=== PATIENT | male | born 1985 | race Caucasian/White ===

== ENCOUNTER 2016-07-21 21:26 | Emergency (ER) | payer MEDICAID ==
--- NOTE | 2016-07-21 22:01 | EDM.PDOC ---
ED HPI HEAD INJURY - General Stated Complaint: UNK Time Seen by Provider: 07/21/16 21:28 Source of Information: Reports: Patient History Limitations: Reports: No limitations - History of Present Illness INITIAL COMMENTS - FREE TEXT/NARRATIVE: Patient reports the following story. He states that he has a history of chronic right shoulder dislocations. In the last few years it has dislocated over 20 times. He usually gets it back into place by laying down and relaxing or getting someone to help him pull it back into place. He was changing his oil in the parking lot of an [employer] store and using a ranch with his right arm when his shoulder dislocated. He asked a passerby to help him pull his shoulder back into place. He asked the gentleman if he was a Jew and he said he was. He laid down on the ground and was telling the good Rastafari how to do it when, he states, everything "went white". When he awoke his shoulder was back in place and he did not have the usual decreased range of motion and tenderness that he has had on previous occasions. He states he believes that Cullen put his shoulder back into place to spare the stranger from having to do it. The stranger then completed the oil change for him. Now he'll he reports face pain and he has a laceration on his chin. He does not know where these injuries came from. Besides the chronic shoulder dislocations he reports no medical problems, he does not take any medications. He denies alcohol use but states that he does sometimes use medicinal cannabis for his shoulder dislocations. 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 He has since quit working for [employer] and is on a road trip to make his own films. - Related Data Allergies/ADRs: Allergies Allergy/AdvReac Type Severity Reaction Status Date / Time No Known Allergies Allergy Verified 07/21/16 22:04 Home Meds: Home Meds Zinc 50 mg PO DAILY 07/21/16 [History] ED ROS GENERAL - Review of Systems Review Of Systems: ROS reveals no pertinent complaints other than HPI. ED EXAM, HEAD INJURY - Physical Exam Exam: See Below Exam Limited By: Other (bizzare ideations) General Appearance: alert, no apparent distress Head: normocephalic, other (Abrasion under the left eye and on the right zygomatic process 2 cm full-thickness straight laceration to the chin) Ears: normal external exam Nose: normal inspection Throat/Mouth: Normal inspection Neck: non-tender Respiratory: no respiratory distress, lungs clear, normal breath sounds Cardiovascular: normal peripheral pulses, regular rate, rhythm GI/Abdominal Exam (Abbreviated): soft Back Exam: normal inspection Extremities: no evidence of injury Neurologic: no motor/sensory deficits, alert, normal mood/affect, oriented x 3 Skin: Normal color, Warm/dry ED LACERATION/WOUND & ROSARIO PROC - Laceration/Wound Repair Face Lac/wound length in cm: 2 Appearance: subcutaneous Local anesthesia - Lidocaine (Xylocaine): 1% plain Local anesthetic volume: 5cc Skin prep: chlorhexidine (hibiciens) Exploration/Debridement/Repair: wound explored, in a bloodless field, explored to base Closed with: sutures Suture size: 4-0 # of sutures: 3 Suture type: nylon, interrupted Course - Re-Assessments/Exams Free Text/Narrative Re-Assessment/Exam: 07/21/16 22:44 During the course of the wound cleansing and suturing the patient said some bizarre things. First he did not want me to scrub the wound or use chlorhexidine or even wound wash but only "pure water", he wanted me to give him frequent breathing breaks during the cleansing. Then stopped me and ask where the voices were coming from. I was able to talk him into allowing me to use the wound wash to deep irrigate the chin laceration. He would not allow wash of the abrasions. Departure - Departure Time of Disposition: 22:53 Disposition: Home, Self-Care 01 Condition: good Clinical Impression: Laceration Referrals: PCP,None [Primary Care Provider] - [facility] [Outside] [facility] [Outside] Additional Instructions: 1. Shower laceration and abrasions daily. 2. Watch for signs of infection: redness, swelling, purulent drainage 3. Suture removal 7 days--walk in clinic or return here.
[2016-07-21] MEDS ORDERED: Lidocaine 1% 20 ML MDV INJECT ONE (22:02)
[2016-07-21] MEDS ORDERED: Bacitracin Oint 1 GM U/D Packet TOP ONE (22:35)
[2016-07-21 23:04] VITALS: BP 150/80
== END 2016-07-21 23:03 | disposition home or self-care (01) ==
LOC: MW.ED 21:26
DX: S01.81XA Laceration without foreign body of other part of head, initial encounter (principal); X58.XXXA Exposure to other specified factors, initial encounter
CPT/HCPCS: 12011; 99282; 99283